=== PATIENT | male | born 1995 | race African-American/Black ===

== ENCOUNTER 2016-11-25 19:36 | Emergency (ER) | payer OTHER ==
[~2016-11-25] VITALS: Ht 182.9 cm; Wt 82.0 kg
[2016-11-25 19:40] VITALS: BP 126/88; PULSE 72; RESP 16; TEMP 97.7; O2SAT 99
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
[2016-11-25] MEDS ORDERED: IBUPROFEN 600 MG TAB PO ONE (21:45)
== END 2016-11-25 21:55 | disposition home or self-care (01) ==
LOC: NEPD 19:36
DX: S16.1XXA Strain of muscle, fascia and tendon at neck level, initial encounter (principal); V89.2XXA Person injured in unspecified motor-vehicle accident, traffic, initial encounter
CPT/HCPCS: 99281